=== PATIENT | male | born 1990 | race Hispanic/Latino ===

== ENCOUNTER 2019-05-13 19:19 | Emergency (ER) | payer OTHER ==
[2019-05-13] MEDS ORDERED: NAPROXEN 500 MG TABLET ONE (19:47)
== END 2019-05-13 20:32 | disposition home or self-care (01) ==
LOC: EDH 19:19
DX: S50.12XA Contusion of left forearm, initial encounter (principal); V49.50XA Passenger injured in collision with unspecified motor vehicles in traffic accident, initial encounter; Y93.89 Activity, other specified; Y92.89 Other specified places as the place of occurrence of the external cause; Y99.8 Other external cause status